=== PATIENT | male | born 1980 | race Caucasian/White ===

== ENCOUNTER 2017-01-15 23:54 | Emergency (ER) | payer SELFPAY ==
[2017-01-16 00:23] VITALS: BP 111/75; PULSE 78; RESP 20; TEMP 98.4; O2SAT 98
--- NOTE | 2017-01-16 00:58 | C.PDOC ---
History Of Present Illness A 36 year old male presents to the emergency room with complaints of a diffuse itchy rash for 1 month. Patient describes the rash as waxing and waning in intensity. Patient denies any new medications, food, or known allergens. Patient has been trying OTC lotion without any relief. Patient notes that no one else at home has these symptoms. Patient denies any shortness of breath, difficulty breathing, difficulty swallowing, lip swelling, tongue swelling, fever, vomiting, or any other complaints. Time Seen by Provider: 01/16/17 00:10 Chief Complaint (Nursing): Abnormal Skin Integrity History Per: Patient History/Exam Limitations: no limitations Onset/Duration Of Symptoms: Waxing/Waning, Other (1 month) Current Symptoms Are (Timing): Still Present Quality Of Symptoms: Itching Severity: Mild Recent travel outside of the [place]: No Past Medical History Reviewed: Historical Data, Nursing Documentation, Vital Signs Vital Signs: Last Vital Signs Temp 98.4 F 01/16/17 00:03 Pulse 78 01/16/17 00:03 Resp 20 01/16/17 00:03 BP 111/75 01/16/17 00:03 Pulse Ox 98 01/16/17 01:37 - Medical History PMH: Post Traumatic Stress Disorder Family History: States: Unknown Family Hx - Social History Hx Tobacco Use: No Hx Alcohol Use: No Hx Substance Use: No - Immunization History Hx Tetanus Toxoid Vaccination: No Hx Influenza Vaccination: No Hx Pneumococcal Vaccination: No Review Of Systems Except As Marked, All Systems Reviewed And Found Negative. Constitutional: Negative for: Fever ENT: Negative for: Mouth Pain, Mouth Swelling (No lip or tongue swelling), Throat Pain, Throat Swelling, Other (No difficulty swallowing) Respiratory: Negative for: Shortness of Breath Gastrointestinal: Negative for: Vomiting Skin: Positive for: Rash (Diffuse itchy rash) Physical Exam - Physical Exam Appears: Well, Non-toxic Skin: Dry, Rash (Diffus dry scaly rash with erythematous base.) Head: Atraumatic, Normacephalic Eye(s): bilateral: Normal Inspection, PERRL, EOMI Ear(s): Bilateral: Normal Nose: Normal, No Discharge, No Tenderness Tongue: Normal Appearing, No Swelling, No Erythema Lips: Normal Appearing, No Swelling, No Erythema Throat: Normal, No Erythema, No Exudate Neck: Normal ROM, Supple Cardiovascular: Rhythm Regular Respiratory: Normal Breath Sounds, No Rales, No Rhonchi, No Wheezing Gastrointestinal/Abdominal: Soft, No Tenderness, No Guarding, No Rebound Back: Normal Inspection, No CVA Tenderness, No Vertebral Tenderness Extremity: Normal ROM, No Tenderness Neurological/Psych: Oriented x3, Normal Speech ED Course And Treatment O2 Sat by Pulse Oximetry: 98 Progress Note: Patient is resting comfortably, tolerating PO, has no shortness of breath, has no intra-oral swelling, no stridor. Discussed signs of concerns with patient and instructed to follow up with Time Study Technician within 1-2 days. Disposition - Disposition Referrals: [facility] at [facility] [Outside] Disposition: HOME/ ROUTINE Disposition Time: 00:55 Condition: STABLE Additional Instructions: Take short, warm showers. Keep skin hydrated. Follow up with wind operations manager in 1- 2 days . Return to ER if symptoms persist or worsen. Prescriptions: DiphenhydrAMINE [Benadryl] 25 mg PO Q6 #20 cap Hydrocortisone 1% Cream [Cortizone 1% Cream] 1 appl TP TID #1 tube predniSONE [Prednisone] 40 mg PO DAILY #10 tab Instructions: Dermatitis (ED) - Clinical Impression Clinical Impression: Eczema - Scribe Statement The provider has reviewed the documentation as recorded by the Scribe Naga Lindsay All medical record entries made by the Scribe were at my direction and personally dictated by me. I have reviewed the chart and agree that the record accurately reflects my personal performance of the history, physical exam, medical decision making, and the department course for this patient. I have also personally directed, reviewed, and agree with the discharge instructions and disposition.
== END 2017-01-16 01:11 | disposition home or self-care (01) ==
LOC: C.ER 23:54
DX: L30.9 Dermatitis, unspecified (principal)

== ENCOUNTER 2017-04-12 16:11 | Emergency (ER) | payer SELFPAY ==
[2017-04-12 16:50] LABS: RBC URINE 1 /hpf (0-3); URINE BILIRUBIN NEGATIVE (NEGATIVE); URINE BLOOD NEGATIVE (NEGATIVE); URINE COLOR Yellow (YELLOW); URINE GLUCOSE (UA) NORMAL (Normal); URINE KETONE NEGATIVE (NEGATIVE); URINE LEUKOCYTE ESTERASE NEG Leu/uL (Negative); URINE PROTEIN NEGATIVE (NEGATIVE); URINE UROBILINOGEN NORMAL mg/dL (0.2-1.0); WBC URINE < 1 /hpf (0-5)
[2017-04-12 16:59] LABS: BASO % 0.8 % (0.0-2.0); EOS # 0.5 K/uL (0.0-0.7); EOS % 7.6 % (0.0-4.0); HEMATOCRIT 45.8 % (35.0-51.0); LYMPH # 1.3 K/uL (1.0-4.3); LYMPH % 21.5 % (20.0-40.0); MEAN CELL VOLUME 88.9 fL (80.0-94.0); MEAN CORPUSCULAR HEMOGLOBIN 30.8 pg (27.0-31.0); MEAN CORPUSCULAR HGB CONC 34.6 g/dL (33.0-37.0); MEAN PLATELET VOLUME 8.9 fL (7.2-11.7); MONO # 0.4 K/uL (0.0-0.8); MONO % 5.9 % (0.0-10.0); NRBC % 0.1 % (0.0-2.0); RED CELL DISTRIBUTION WIDTH 12.5 % (11.5-14.5); WHITE BLOOD COUNT 6.2 K/uL (4.8-10.8)
[2017-04-12 17:06] LABS: CHLORIDE 98 mmol/L (98-107)
[2017-04-12 17:07] LABS: POTASSIUM 3.6 mmol/L (3.6-5.2); SODIUM 138 mmol/L (132-148)
[2017-04-12 17:09] LABS: ALB/GLOB RATIO 1.2 (1.0-2.1); ALKALINE PHOSPHATASE 49 U/L (38-126); ALT/SGPT 36 U/L (21-72); AST/SGOT 23 U/L (17-59); BILIRUBIN,TOTAL 0.8 mg/dL (0.2-1.3); BLOOD UREA NITROGEN 19 mg/dL (9-20); CARBON DIOXIDE 29 mmol/L (22-30); GFR AFRICAN-AMERICAN > 60; GLUCOSE,RANDOM 90 mg/dL (75-110); TOTAL PROTEIN 7.5 g/dL (6.3-8.3)
[2017-04-12 17:10] LABS: CALCIUM 8.5 mg/dl (8.6-10.4)
--- NOTE | 2017-04-12 17:43 | C.PDOC ---
History Of Present Illness Patient is a 36 year old male who presents to the ER because he friend told him he might have worms since he saw a "tiny shrimp" when he wiped himself after defecation. Patient states he has always eaten a lot and has always been thin. Patient also notes finding blood on a q-tip this morning. Denies recent travel, epigastric pain, vomiting and diarrhea at this time. Time Seen by Provider: 04/12/17 16:25 Chief Complaint (Nursing): Abdominal Pain History Per: Patient History/Exam Limitations: no limitations Onset/Duration Of Symptoms: Hrs Current Symptoms Are (Timing): Still Present Associated Symptoms: denies: Vomiting, Diarrhea Recent travel outside of the [place]: No Past Medical History Reviewed: Historical Data, Nursing Documentation, Vital Signs Vital Signs: Last Vital Signs Temp 98.2 F 04/12/17 18:03 Pulse 75 04/12/17 18:03 Resp 16 04/12/17 18:03 BP 128/70 04/12/17 18:03 Pulse Ox 96 04/12/17 18:43 - Medical History PMH: Post Traumatic Stress Disorder Surgical History: No Surg Hx Family History: States: Unknown Family Hx - Social History Hx Tobacco Use: No Hx Alcohol Use: Yes Hx Substance Use: No - Immunization History Hx Tetanus Toxoid Vaccination: No Hx Influenza Vaccination: No Hx Pneumococcal Vaccination: No Review Of Systems Gastrointestinal: Negative for: Vomiting, Abdominal Pain, Diarrhea Physical Exam - Physical Exam Appears: Non-toxic, No Acute Distress, Other (Thin) Skin: Normal Color, Warm, Dry Head: Atraumatic, Normacephalic Ear(s): Left: Other (excoriation of canal), Right: Normal Chest: Symmetrical, No Tenderness Cardiovascular: Rhythm Regular, No Murmur Respiratory: Normal Breath Sounds, No Rales, No Rhonchi, No Wheezing Gastrointestinal/Abdominal: Soft, No Tenderness Neurological/Psych: Oriented x3, Normal Speech, Normal Cognition ED Course And Treatment - Laboratory Results Result Diagrams: 04/12/17 16:56 04/12/17 16:56 Lab Interpretation: Normal (ua/tox neg.) O2 Sat by Pulse Oximetry: 96 (Room air) Pulse Ox Interpretation: Normal - Radiology CXR: Interpreted by Me CXR Interpretation: Yes: No Acute Disease - Other Rad abd x 2 X-Ray: Interpreted by Me (+FOS) Progress Note: Paracite screen and abd x-ray ordered. Medical Decision Making Medical Decision Making: chronic constipation, low susp of "worms" in stool stool O/P ordered and may f/u as opt. Disposition Doctor Will See Patient In The: Office Counseled Patient/Family Regarding: Studies Performed, Diagnosis - Disposition Referrals: [facility] [Outside] Disposition: HOME/ ROUTINE Disposition Time: 17:53 Condition: GOOD Additional Instructions: Constipation: drink a laxative now. Eat more fresh fruits and vegetables Drink more water Follow-up with our outpatient clinic for your "stool for ova and parasites." Bleeding from ear canal Provoked from agressive Q-tipping never put anything in your ear canal. Instructions: Constipation (ED) Print Language: INDONESIAN - Clinical Impression Clinical Impression: Abdominal colic, Ear bleeding - Scribe Statement The provider has reviewed the documentation as recorded by the Scribe Didier Plata All medical record entries made by the Patrickibe were at my direction and personally dictated by me. I have reviewed the chart and agree that the record accurately reflects my personal performance of the history, physical exam, medical decision making, and the department course for this patient. I have also personally directed, reviewed, and agree with the discharge instructions and disposition.
--- NOTE | 2017-04-12 17:50 | RAD ---
PROCEDURE: Radiographs of the chest and abdomen (obstructive series) HISTORY: crampy epigastric pain, chronic, COMPARISON: No prior. TECHNIQUE: AP radiograph of the chest, with upright and supine radiographs of the abdomen. FINDINGS: CHEST: Lungs: Clear. Cardiovascular: Normal size heart. No pulmonary vascular congestion. Pleura: No pleural fluid. No pneumothorax. Other findings: None. ABDOMEN AND PELVIS: Bowel: Moderate retained feces. No evidence of bowel obstruction. Free air: None. Bones: Unremarkable. Other findings: None. IMPRESSION: Moderate retained feces. No bowel obstruction. No pulmonary infiltrate.
[2017-04-12 18:04] VITALS: BP 128/70; PULSE 75; RESP 16; TEMP 98.2
[2017-04-12 18:38] VITALS: O2SAT 96
== END 2017-04-12 18:03 | disposition home or self-care (01) ==
LOC: C.ER 16:11
DX: R10.84 Generalized abdominal pain (principal); H92.22 Otorrhagia, left ear
CPT/HCPCS: 36415; 74022; 80053; 81001; 83690; 85025; 87177; 87209; 99284; G0480

== ENCOUNTER 2018-09-19 12:16 | Emergency (ER) | payer SELFPAY ==
[2018-09-19 12:21] VITALS: BMI 24.3
[2018-09-19 12:22] VITALS: RESP 18; O2SAT 96
[2018-09-19] MEDS ORDERED: Sodium Chloride 0.9% 1,000 ML IV ONE (12:33)
[2018-09-19] MEDS ORDERED: Sodium Chloride 0.9% 1,000 ML ONE (12:55)
[2018-09-19 13:01] LABS: BASO % 0.4 % (0.0-2.0); EOS # 0.2 K/uL (0.0-0.7); EOS % 3.5 % (0.0-4.0); HEMOGLOBIN 16.4 g/dL (12.0-18.0); LYMPH % 18.2 % (20.0-40.0); MEAN CELL VOLUME 87.3 fL (80.0-94.0); MEAN CORPUSCULAR HEMOGLOBIN 31.1 pg (27.0-31.0); MEAN CORPUSCULAR HGB CONC 35.6 g/dL (33.0-37.0); MEAN PLATELET VOLUME 8.4 fL (7.2-11.7); MONO # 0.7 K/uL (0.0-0.8); MONO % 11.8 % (0.0-10.0); NEUT # 3.8 K/uL (1.8-7.0); NEUT % 66.1 % (50.0-75.0); NRBC % 0.3 % (0.0-2.0); RBC 5.26 Mil/uL (4.40-5.90); RED CELL DISTRIBUTION WIDTH 12.8 % (11.5-14.5); WHITE BLOOD COUNT 5.7 K/uL (4.8-10.8)
[2018-09-19 13:16] LABS: URINE BILIRUBIN 1+ (NEGATIVE); URINE BLOOD NEGATIVE (NEGATIVE); URINE CLARITY Clear (Clear); URINE COLOR Amber (YELLOW); URINE GLUCOSE (UA) NORMAL (Normal); URINE LEUKOCYTE ESTERASE NEG Leu/uL (Negative); URINE PROTEIN 1+ mg/dL (NEGATIVE)
[2018-09-19 13:19] LABS: ALB/GLOB RATIO 1.4 (1.0-2.1); ALBUMIN 4.4 g/dL (3.5-5.0); ALT/SGPT 30 U/L (21-72); AST/SGOT 24 U/L (17-59); BLOOD UREA NITROGEN 17 mg/dL (9-20); CALCIUM 8.6 mg/dl (8.6-10.4); GFR NON-AFRICAN AMERICAN > 60; LIPASE 77 U/L (23-300)
--- NOTE | 2018-09-19 14:01 | C.PDOC ---
History Of Present Illness 38 years old male presents to ED for complaints of abdominal cramps associated with nausea, vomiting, diarrhea, chills that began last night. Patient states he was not able to go to work today. Denies sick contacts, unusual food intake, hematuria, dysuria or other complaints. Time Seen by Provider: 09/19/18 12:24 Chief Complaint (Nursing): GI Problem History Per: Patient History/Exam Limitations: no limitations Onset/Duration Of Symptoms: Hrs Current Symptoms Are (Timing): Still Present Quality Of Discomfort: Cramping Associated Symptoms: Chills, Nausea, Vomiting, Diarrhea. denies: Fever, Urinary Symptoms Exacerbating Factors: None Alleviating Factors: None Last Bowel Movement: Today Recent travel outside of the [place]: No Past Medical History Reviewed: Historical Data, Nursing Documentation, Vital Signs Vital Signs: Last Vital Signs Temp 97.9 F 09/19/18 12:20 Pulse 96 H 09/19/18 12:20 Resp 18 09/19/18 12:20 BP 108/75 09/19/18 12:20 Pulse Ox 96 09/19/18 12:20 - Medical History PMH: Post Traumatic Stress Disorder Family History: States: Unknown Family Hx - Social History Hx Tobacco Use: No Hx Alcohol Use: Yes Hx Substance Use: No - Immunization History Hx Tetanus Toxoid Vaccination: No Hx Influenza Vaccination: No Hx Pneumococcal Vaccination: No Review Of Systems Constitutional: Positive for: Chills. Negative for: Fever Gastrointestinal: Positive for: Nausea, Vomiting, Abdominal Pain, Diarrhea Genitourinary: Negative for: Dysuria, Hematuria Skin: Negative for: Rash Neurological: Negative for: Weakness, Numbness Physical Exam - Physical Exam Appears: Non-toxic, No Acute Distress Skin: Normal Color, Warm, Dry, No Rash Head: Atraumatic, Normacephalic Eye(s): bilateral: Normal Inspection, PERRL, EOMI Oral Mucosa: Moist Neck: Supple Chest: Symmetrical, No Tenderness Respiratory: Normal Breath Sounds, No Rales, No Rhonchi, No Wheezing Gastrointestinal/Abdominal: Soft, Tenderness (Mild diffuse. Negative Covarrubias's sign and Mcburney's point.) Extremity: Normal ROM Extremity: Bilateral: Atraumatic, Normal Color And Temperature, Normal ROM Neurological/Psych: Oriented x3, Normal Speech Gait: Steady ED Course And Treatment - Laboratory Results Result Diagrams: 09/19/18 12:56 09/19/18 12:56 O2 Sat by Pulse Oximetry: 96 (RA) Pulse Ox Interpretation: Normal Progress Note: Administered Zofran, IV Fluids, Pepcid, and Bentyl. Ordered Blood work and Urinalysis. Re-Evaluation: Patient is feeling much better and is stable for discharge. Patient is medically stable and ready for discharge. Counseling has been provided and patient is in agreement. Return if symptoms persist or acutely worsen. Disposition Counseled Patient/Family Regarding: Studies Performed, Diagnosis, Need For Followup, Rx Given - Disposition Referrals: [facility] at [facility] [Outside] Disposition: HOME/ ROUTINE Disposition Time: 14:00 Condition: STABLE Additional Instructions: FOLLOW UP WITH YOUR DOCTOR/CLINIC IN 1-2 DAYS USE MEDICATIONS NEEDED DRINK PLENTY OF CLEAR FLUIDS RETURN TO ER IF SYMPTOMS WORSEN Prescriptions: Dicyclomine [Bentyl] 20 mg PO Q6 PRN #15 tab PRN Reason: ABDOMINAL CRAMPING Ondansetron ODT [Zofran ODT] 1 odt PO BID PRN #15 odt PRN Reason: Nausea/Vomiting Instructions: Viral Gastroenteritis, Adult (DC) Forms: [employer] (Russian), Work Excuse Print Language: SURINAMESE - Clinical Impression Clinical Impression: Nausea & vomiting, Diarrhea - Scribe Statement The provider has reviewed the documentation as recorded by the Patrickibseun Ibarra All medical record entries made by the Patrickibseun were at my direction and personally dictated by me. I have reviewed the chart and agree that the record accurately reflects my personal performance of the history, physical exam, medical decision making, and the department course for this patient. I have also personally directed, reviewed, and agree with the discharge instructions and disposition.
[2018-09-19 14:02] VITALS: BP 104/72; PULSE 102; TEMP 98.6
== END 2018-09-19 14:05 | disposition home or self-care (01) ==
LOC: C.ER 12:16
DX: R11.2 Nausea with vomiting, unspecified (principal); R19.7 Diarrhea, unspecified
CPT/HCPCS: 80053; 81001; 83690; 85025; 96361; 96374; 96375; 99283; J2405; J7030